=== PATIENT | male | born 1995 | race Caucasian/White ===

== ENCOUNTER 2019-05-20 16:57 | Emergency (ER) | payer BC ==
[2019-05-20] MEDS ORDERED: Aspirin 81 mg CHEW TAB* 81 MG TAB.CHEW PO ONE (17:25)
--- NOTE | 2019-05-20 17:32 | UC ---
UC General HPI - HPI Summary HPI Summary: 23 yo gentleman presents with spouse, c/o chest pain on and off over the last 3 days. Pain upper ant-lat chest, does not radiate. Approx 4/10. Does not know of aggravating / alleviating factors. No sob. Hx "PVC's" when he was 17 yo, dx 'd during sports physical. Subsequently had a cardiac w/u in [place] (does not recall MD), including 3 day heart monitor, ekg. Denies recent travel other than trip from [place]. No recent air or long distance travel. No rash. No fever / chills. No GI issues. Caffeine once daily, occas alcohol, weekly cigar , no drugs incl marij, no energy drinks / supplements. Fam hx GM with cardiac stent. Took advil x 2 today, but didn't help. Sx each day started in the afternoon, slow start. Sx do not wax and wane. Went to bed, awoke pain free (0 /10). Today's sx started approx noon, similar pain as in the last couple days. 410. - History of Current Complaint Chief Complaint: UCChestPain Stated Complaint: CHEST PAIN Time Seen by Provider: 05/20/19 17:10 Hx Obtained From: Patient Pain Intensity: 4 - Allergy/Home Medications Allergies/Adverse Reactions: Allergies Allergy/AdvReac Type Severity Reaction Status Date / Time No Known Allergies Allergy Verified 05/20/19 17:07 Home Medications: Home Medications NK [No Home Medications Reported] 05/20/19 [History Confirmed 05/20/19] PMH/Surg Hx/FS Hx/Imm Hx Previously Healthy: Yes - Surgical History Surgical History: Yes Surgery Procedure, Year, and Place: abi cyst - Family History Known Family History: Positive: Other - dad alcoholism, gm cardiac dz - Social History Occupation: Employed Full-time Alcohol Use: Occasionally Substance Use Type: None Smoking Status (MU): Unknown if Ever Smoked Review of Systems All Other Systems Reviewed And Are Negative: Yes Constitutional: Positive: Other - see hpi Skin: Positive: Negative Eyes: Positive: Negative ENT: Positive: Negative Respiratory: Positive: Other - see hpi Cardiovascular: Positive: Other - see hpi Gastrointestinal: Positive: Negative Genitourinary: Positive: Negative Motor: Positive: Negative Neurovascular: Positive: Negative Musculoskeletal: Positive: Negative Neurological: Positive: Negative Psychological: Positive: Negative Is Patient Immunocompromised?: No Physical Exam Triage Information Reviewed: Yes Appearance: Well-Appearing - sitting up, conversing easily. NAD., Well- Nourished Vital Signs: Initial Vital Signs Temp 98.7 F 05/20/19 16:58 Pulse 111 05/20/19 16:58 Resp 16 05/20/19 16:58 BP 156/74 05/20/19 16:58 Pulse Ox 100 05/20/19 16:58 Vital Signs Reviewed: Yes Eye Exam: Normal ENT Exam: Normal Neck exam: Normal Neck: Positive: Supple, Nontender Respiratory Exam: Normal Respiratory: Positive: Chest non-tender, Lungs clear, Normal breath sounds, No respiratory distress, No accessory muscle use Cardiovascular Exam: Other - HR approx 120's, correlates with L radial pulse Cardiovascular: Positive: Pulses Normal, Brisk Capillary Refill Abdominal Exam: Normal Abdomen Description: Positive: Nontender Musculoskeletal Exam: Normal - gait steady Musculoskeletal: Positive: Strength Intact, No Edema, Other: - feet warm to touch, cap refill is good Neurological Exam: Normal - grossly nonfocal Psychological Exam: Normal - conversing easily and appropriately Skin Exam: Normal - no visible or reported rash Course/Dx - Course Course Of Treatment: EKG ST at 128 bpm. INv T's V1-4 (bimodal 5). AL nonspecific changes, ? ischemia QTc 520 MD 99 No old EKG for comparison. Reviewed EKG with pt and spouse. Reviewed need for Emergency Dept evaluation. He expresses understanding, but adamantly declines EMS. Spouse will drive. ASA 324mg po x 1 (81mg x 4 baby doses). I called [place] [facility], where pt is heading, spoke with Cydney Hyman NP. - Diagnoses Provider Diagnosis: Chest pain Discharge ED - Sign-Out/Discharge Documenting (check all that apply): Patient Departure All imaging exams completed and their final reports reviewed: No Studies - Discharge Plan Condition: Guarded Disposition: HOME-RECOMMEND TO ED Patient Education Materials: Chest Pain (ED) Referrals: No Primary Care Phys,NOPCP [Medical Doctor] - Additional Instructions: Please go directly to the Emergency Department. Do not stop on the way, unless you experience any worse or new problems. If that happens, stop and call 911. - Billing Disposition and Condition Condition: GUARDED Disposition: Home-Recommend to ED
== END 2019-05-20 17:38 | disposition home health service (06) ==
LOC: UCCORT 16:57
DX: R07.9 Chest pain, unspecified (principal)
CPT/HCPCS: 93005; 99202; A9270-GY; G0463